=== PATIENT | male | born 1985 | race Caucasian/White ===

== ENCOUNTER 2018-07-12 08:55 | Emergency (ER) | payer MEDICAID ==
[~2018-07-12] VITALS: Ht 170.2 cm; Wt 75.0 kg
[2018-07-12 09:12] VITALS: BP 137/80
[2018-07-12] MEDS ORDERED: HYDR-3965 PO (09:53)
[2018-07-12] MEDS ORDERED: CLIN300C85 PO (09:53)
== END 2018-07-12 10:05 | disposition home or self-care (01) ==
LOC: ER 08:55
DX: K04.7 Periapical abscess without sinus (principal); F17.200 Nicotine dependence, unspecified, uncomplicated; Z79.2 Long term (current) use of antibiotics; Z79.899 Other long term (current) drug therapy
CPT/HCPCS: 99283

== ENCOUNTER 2024-04-17 00:09 | Emergency (ER) | payer MEDICAID, OTHER ==
[~2024-04-17] VITALS: Ht 170.2 cm; Wt 71.4 kg
[~2024-04-17 00:09] MED LIST: CLIN-97 PO
[2024-04-17 00:13] VITALS: BP 147/103; PULSE 118; RESP 16; O2SAT 96
[2024-04-17] MEDS: bacitracin 15gm ointment TP ONE (00:27)
== END 2024-04-17 00:35 ==
LOC: ER 00:09
DX: S00.81XA Abrasion of other part of head, initial encounter (principal); S80.211A Abrasion, right knee, initial encounter; Z79.2 Long term (current) use of antibiotics; X58.XXXA Exposure to other specified factors, initial encounter; Y93.89 Activity, other specified; Y92.89 Other specified places as the place of occurrence of the external cause; Y99.8 Other external cause status
CPT/HCPCS: 99283

== ENCOUNTER 2024-09-22 15:24 | Emergency (ER) | payer MEDICAID ==
[~2024-09-22] VITALS: Ht 170.2 cm; Wt 55.2 kg
[2024-09-22 15:48] VITALS: BP 114/76; PULSE 89; RESP 16; TEMP 99.2; O2SAT 97
[2024-09-22] MEDS ORDERED: AMOX875T10 PO (16:55)
[2024-09-22] MEDS: amoxicillin 250mg capsule PO STA (17:19)
== END 2024-09-22 17:25 | disposition home or self-care (01) ==
LOC: ER 15:25
DX: K02.9 Dental caries, unspecified (principal); K04.7 Periapical abscess without sinus
CPT/HCPCS: 99283